=== PATIENT | male | born 1955 | race Caucasian/White ===

== ENCOUNTER 2016-11-22 22:27 | Emergency (ER) | payer BC ==
[~2016-11-22] VITALS: Ht 190.5 cm; Wt 109.8 kg
[2016-11-22] MEDS ORDERED: PRINIVIL10 MG PO (22:58)
[2016-11-22] MEDS ORDERED: METFORMIN500 MG PO (22:59)
== END 2016-11-23 00:33 | disposition home or self-care (01) ==
LOC: ED 22:27
DX: T78.3XXA Angioneurotic edema, initial encounter (principal)